=== PATIENT | male | born 1985 | race Caucasian/White ===

== ENCOUNTER 2016-10-05 14:24 | Emergency (ER) | payer SELFPAY ==
[~2016-10-05] VITALS: Ht 160 cm; Wt 74.8 kg
[2016-10-05 14:36] VITALS: BP 129/92
--- NOTE | 2016-10-05 14:40 | NUR ---
PT BIBA ;FOUND ON THE STREET INTOXICATED. HX: ALCOHOLISM;PER EMS PT IS UNABLE TO STAND AND WALK;DENIES CP/SOB/ANY PAIN AT THIS TIME;NO BRUISE NOTED;UNLABORED BREATHING W/ SYMMETRICAL CHEST EXPANSION;AWAKE AND ALERT;HOB ELEVATED;NEEDS ATTENDED;SAFETY MEASURES DONE;SECURITY AT BEDSIDE;
--- NOTE | 2016-10-05 15:24 | NUR ---
PATIENT ELOPED FROM FACILITY.DR. OLIVER NOTIFIED.
[2016-10-05 15:25] VITALS: BP 129/92
== END 2016-10-05 15:24 | disposition left against medical advice (07) ==
LOC: MED 15:00
DX: F10.129 Alcohol abuse with intoxication, unspecified (principal); Z53.21 Procedure and treatment not carried out due to patient leaving prior to being seen by health care provider